=== PATIENT | female | born 1945 | race Caucasian/White ===

== ENCOUNTER 2016-11-16 05:24 | Inpatient (IN) | payer OTHER ==
[~2016-11-16] VITALS: Ht 147.3 cm; Wt 92.3 kg
[2016-11-16] MEDS ORDERED: IPRATRPIUM/ALBUTEROL 0.5/2.5MG 3 ML NEBU. ONE (05:57)
[2016-11-16] MEDS ORDERED: VANCOMYCIN PER PHARMACY MC PRN (06:30)
[2016-11-16] MEDS ORDERED: IPRATRPIUM/ALBUTEROL 0.5/2.5MG 3 ML NEBU. NEB ONE (06:30)
[2016-11-16] MEDS ORDERED: PIP/TAZO PER PHARMACY MC PRN (06:30)
[2016-11-16 06:35] LABS: BASO # 0.1 x10^3/uL (0.0-0.2); BASO % 1 % (0-3); EOS % 2 % (0-3); HEMATOCRIT 38.2 % (36.0-47.0); HEMOGLOBIN 12.1 g/dL (12.0-15.5); LYMPH # 1.4 x10^3/uL (1.0-4.8); LYMPH % 8 % (24-48); MEAN CORPUSCULAR HEMOGLOBIN 28 pg (25-35); MEAN CORPUSCULAR HGB CONC 32 g/dL (31-37); MEAN CORPUSCULAR VOLUME 87 fL (79-100); MONO % 7 % (0-9); NEUT % 82 % (31-73); PLATELET COUNT 327 x10^3/uL (140-400); RED BLOOD COUNT 4.38 x10^6/uL (3.50-5.40); RED CELL DISTRIBUTION WIDTH 16.7 % (11.5-14.5); WHITE BLOOD COUNT 16.9 x10^3/uL (4.0-11.0)
[2016-11-16 06:37] LABS: BILIRUBIN,URINE NEGATIVE (NEG); GLUCOSE,URINE NEGATIVE (NEG); NITRITE,URINE NEGATIVE (NEG); PROTEIN,URINE NEGATIVE (NEG-TRACE); UROBILINOGEN,URINE 0.2 mg/dL (0.2 mg/dL)
[2016-11-16] MEDS: IV NORMAL SALINE 1000ML BAG 1,000 ML IV SCH ×3 (06:43→09:30)
--- NOTE | 2016-11-16 06:46 | PHYS DOC ---
Past Medical History Past Medical History: Anxiety, Arthritis, COPD, Depression, Diabetes-Type I, Fibromyalgia, High Cholesterol, Hypertension, Other Additional Past Medical Histor: NEUROPATHY, HYPOKALEMIA, ALLERGIC RHINITIS Past Surgical History: , Knee Replacement Alcohol Use: None Drug Use: None Adult General Chief Complaint Chief Complaint: MECHANICAL FALL HPI HPI 71-year-old female presenting to the emergency department from an assisted living facility after sustaining a mechanical fall when she reports that her knee gave out. She had knee surgery at the end of September and has been doing rehabilitation on her knee. She also has had a cough for the past 3 days. It is productive with a yellow green sputum. Here the patient has a fever. Onset 2-3 days. Location lungs. Duration intermittent. No alleviating or exacerbating factors. The patient denies any redness or warmth in her right knee. She denies having severe pain in her right knee and reports rehabilitation is going as expected after the knee surgery. Review of systems is negative for abdominal pain nausea vomiting. Positive for fever. Negative for rash. All other review of systems is negative unless otherwise noted in history of present illness. Pertinent physical exam findings: Lungs show mild wheezing bilaterally. tachy rate w/ reg rhythm. Abdomen is soft and nontender. The patient's right knee shows a clean dry and intact post surgical scar that is healing appropriately. The knee is similar in temperature to the contralateral knee. ED course: 71-year-old female presenting to the emergency department today with cough and fever. She was also hypoxic on initial triage vital signs. She is placed on oxygen given nebulizer. On inspection of the patient's surgical knee it does not appear to have clinical evidence suggestive of septic arthritis at this time. The patient does trigger our sepsis protocol. Lactic acid along with blood cultures IV antibiotics and fluid administration ordered. The patient was then admitted to our hospital for further evaluation workup and care. I did place an orthopedic consult to evaluate the patient's postsurgical knee. Review of Systems Review of Systems SEE ABOVE. Current Medications Current Medications Current Medications Medications (Trade) Dose Ordered Sig/James Start Time Stop Time Status Last Admin Dose Admin Albuterol/ Ipratropium (Duoneb) 3 ml 1X ONCE 11/16/16 06:30 11/16/16 06:31 DC 11/16/16 06:07 3 ML Piperacillin Sod/ Tazobactam Sod (Zosyn Per Pharmacy) 1 each PRN DAILY PRN 11/16/16 06:30 Vancomycin HCl (Vanco Per Pharmacy) 1 each PRN DAILY PRN 11/16/16 06:30 11/16/16 08:15 1 EACH Allergies Allergies Physical Exam Physical Exam Constitutional: Well developed, well nourished, no acute distress, non-toxic appearance. [] HENT: Normocephalic, atraumatic, bilateral external ears normal, oropharynx moist, no oral exudates, nose normal. [] Eyes: PERRLA, EOMI, conjunctiva normal, no discharge. [] Neck: Normal range of motion, no tenderness, supple, no stridor. [] Cardiovascular:Heart rate regular rhythm, no murmur [] Lungs & Thorax: see above Abdomen: Bowel sounds normal, soft, no tenderness, no masses, no pulsatile masses. [] Skin: Warm, dry, no erythema, no rash. [] Back: No tenderness, no CVA tenderness. [] Extremities: see above Neurologic: Alert and oriented X 3, normal motor function, normal sensory function, no focal deficits noted. [] Psychologic: Affect normal, judgement normal, mood normal. [] Current Patient Data Vital Signs Vital Signs Date Time Temp Pulse Resp B/P (MAP) Pulse Ox O2 Delivery O2 Flow Rate FiO2 11/16/16 06:25 110 129/68 (88) 94 Nasal Cannula 3.0 11/16/16 05:26 100.8 20 100.8 Lab Values Laboratory Tests Test 11/16/16 05:40 11/16/16 05:45 11/16/16 06:25 Lactic Acid Level 2.6 mmol/L (0.4-2.0) H Troponin I Quantitative < 0.017 ng/mL (0.000-0.055) White Blood Count 16.9 x10^3/uL (4.0-11.0) H Red Blood Count 4.38 x10^6/uL (3.50-5.40) Hemoglobin 12.1 g/dL (12.0-15.5) Hematocrit 38.2 % (36.0-47.0) Mean Corpuscular Volume 87 fL (79-100) Mean Corpuscular Hemoglobin 28 pg (25-35) Mean Corpuscular Hemoglobin Concent 32 g/dL (31-37) Red Cell Distribution Width 16.7 % (11.5-14.5) H Platelet Count 327 x10^3/uL (140-400) Neutrophils (%) (Auto) 82 % (31-73) H Lymphocytes (%) (Auto) 8 % (24-48) L Monocytes (%) (Auto) 7 % (0-9) Eosinophils (%) (Auto) 2 % (0-3) Basophils (%) (Auto) 1 % (0-3) Neutrophils # (Auto) 13.9 x10^3uL (1.8-7.7) H Lymphocytes # (Auto) 1.4 x10^3/uL (1.0-4.8) Monocytes # (Auto) 1.2 x10^3/uL (0.0-1.1) H Eosinophils # (Auto) 0.3 x10^3/uL (0.0-0.7) Basophils # (Auto) 0.1 x10^3/uL (0.0-0.2) Sodium Level 143 mmol/L (136-145) Potassium Level 4.2 mmol/L (3.5-5.1) Chloride Level 106 mmol/L (98-107) Carbon Dioxide Level 26 mmol/L (21-32) Anion Gap 11 (6-14) Blood Urea Nitrogen 20 mg/dL (7-20) Creatinine 1.0 mg/dL (0.6-1.0) Estimated GFR (Cockcroft-Gault) 54.7 BUN/Creatinine Ratio 20 (6-20) Glucose Level 123 mg/dL (70-99) H Calcium Level 9.2 mg/dL (8.5-10.1) Total Bilirubin 0.3 mg/dL (0.2-1.0) Aspartate Amino Transferase (AST) 21 U/L (15-37) Alanine Aminotransferase (ALT) 13 U/L (14-59) L Alkaline Phosphatase 122 U/L (46-116) H Total Protein 6.6 g/dL (6.4-8.2) Albumin 3.5 g/dL (3.4-5.0) Albumin/Globulin Ratio 1.1 (1.0-1.7) Urine Collection Type U cath Urine Color Yellow Urine Clarity Clear Urine pH 6.0 Urine Specific [place] 1.020 Urine Protein Negative mg/dL (NEG-TRACE) Urine Glucose (UA) Negative mg/dL (NEG) Urine Ketones (Stick) Negative mg/dL (NEG) Urine Blood Negative (NEG) Urine Nitrite Negative (NEG) Urine Bilirubin Negative (NEG) Urine Urobilinogen Dipstick 0.2 mg/dL (0.2 mg/dL) Urine Leukocyte Esterase Small (NEG) Urine RBC 0 /HPF (0-2) Urine WBC 1-4 /HPF (0-4) Urine Transitional Epithelial Cells Mod /LPF Urine Amorphous Sediment Present /HPF Urine Bacteria Few /HPF (0-FEW) Urine Mucus Slight /LPF Laboratory Tests 11/16/16 05:45 Laboratory Tests 11/16/16 05:45 EKG EKG [] Radiology/Procedures Radiology/Procedures [] Course & Med Decision Making Course & Med Decision Making Pertinent Labs and Imaging studies reviewed. (See chart for details) [] Dragon Disclaimer Dragon Disclaimer This electronic medical record was generated, in whole or in part, using a voice recognition dictation system. Departure Departure Impression: Primary Impression: Pneumonia Disposition: ADMITTED INPATIENT Admitting Physician: Guilherme Palencia Condition: IMPROVED Referrals: BA SERRANO (PCP) TAMELA JOHNSTON MD Nov 16, 2016 06:46
[2016-11-16 06:53] LABS: BACTERIA,URINE FEW /HPF (0-FEW); RBC,URINE 0 /HPF (0-2)
[2016-11-16 06:53] LABS: CALCIUM 9.2 mg/dL (8.5-10.1); GFR 54.7; POTASSIUM 4.2 mmol/L (3.5-5.1)
[2016-11-16 06:59] LABS: ALBUMIN 3.5 g/dL (3.4-5.0); ALBUMIN/GLOBULIN RATIO 1.1 (1.0-1.7); TOTAL BILIRUBIN 0.3 mg/dL (0.2-1.0); TOTAL PROTEIN 6.6 g/dL (6.4-8.2)
[2016-11-16] MEDS ORDERED: PIPERACILLIN/TAZOBACTAM 3.375 GM in IV NORMAL SALINE 50ML 50 ML IV ONE (07:00)
[2016-11-16] MEDS ORDERED: VANCOMYCIN 2 GM in IV NORMAL SALINE 500ML BAG 500 ML IV ONE (07:00)
--- NOTE | 2016-11-16 07:20 | EKG ---
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
[2016-11-16] MEDS ORDERED: ONDANSETRON PF 4 MG/2 ML VIAL. IV PRN ×2 (07:30→10:15)
[2016-11-16] MEDS ORDERED: MORPHINE SULFATE 2 MG/ML DISP.SYRIN. IV PRN (07:30)
--- NOTE | 2016-11-16 07:33 | RAD ---
Indication fever. Assess for occult infection. PA and lateral views of the chest were obtained. No prior imaging of the chest is available. The heart and pulmonary vessels appear normal. The lungs are clear acute infiltrates. Significant pleural fluid is not seen. There is no pneumothorax. Right shoulder prosthesis is noted. IMPRESSION: No acute or focal process is seen in the chest
--- NOTE | 2016-11-16 07:42 | ACF ---
Admission Forms Criteria TELEMETRY CARE Telemetry Admission Guidelines (Place 'X' for any and all applicable criteria): Admission to telemetry [A] may be indicated for ANY ONE of the following(1)(2)(3 )(4)(5): [X]I. Cardiac disease, including ANY ONE of the following (9)(10)(11)(12)(13 ): [ ]a) Postacute WI [ ]b) Low-risk patients with ST-segment elevation WI who have undergone successful percutaneous coronary intervention [ ]c) Unstable angina [ ]d) Suspected WI (until it is ruled out) [ ]e) Post cardiac surgery (first 48 to 72 hours unless complications occur) [X]f) Acute arrhythmias (including significant tachycardia or bradycardia) [B] [ ]g) Firing of an implantable cardioverter defibrillator [C] [ ]h) Suspected pacemaker or implantable cardioverter defibrillator malfunction (10) [ ]i) New administration or adjustment of an antiarrhythmic drug [D ] [ ]j) Child admitted for acute congestive heart failure [ ]j) Long QT syndrome [ ]k) Advanced heart block (eg, second-degree Mobitz type II, third- degree heart block) [ ]l) Acute myocarditis or pericarditis [ ]m) Short-term (ambulatory or inpatient) monitoring after a cardiac procedure as indicated by ANY ONE of the following [E]: [ ]i) Electrophysiologic studies [ ]ii) Percutaneous coronary intervention with stent placement [ ]iii) Pacemaker placement with cardiac conduction defect [ ]iv) Implantable cardiac defibrillator placement [ ]II. Drug overdose or poisoning with substance that causes arrhythmias or QT prolongation (eg, phenothiazines, sympathomimetic agents, cyclic antidepressants, digitalis, antiarrhythmic drugs)(15) [ ]III. Short-term (ambulatory or inpatient) monitoring after therapeutic or diagnostic procedure requiring conscious sedation or anesthesia (eg, endoscopy, elective cardioversion) [ ]IV. Acute cerebrovascular even[F](18) [ ]V. Massive blood transfusion (eg, at least 10 units of packed red blood cells in 24 hours) [ ]. Variceal bleeding after endoscopy, sclerotherapy, or IV vasopressin [ ]VII. Uncorrected electrolyte abnormalities associated with an increased risk of dangerous arrhythmia [G]; examples include [ ]a) Hyperkalemia with attributable ECG changes [ ]b) Potassium greater than 6.5 mmol/L (mEq/L) in a patient without history of chronic renal disease [ ]c) Prolonged QT attributed to hypokalemia, hypomagnesemia, or hypocalcemia [ ]VIII.Unexplained syncope or other neurologic event suspected of being due to arrhythmia due to a finding that increases risk; examples include(19)(20)(21): [ ]a) High-risk ECG findings (eg, bifascicular block, bradycardia, abnormal QT interval, ventricular pre- excitation) [ ]b) History of previous syncope due to arrhythmia [ ]c) Abnormal ventricular function (eg, reduced ejection fraction ) [ ]d) Exertional or supine syncope [ ]e) Concerning syncope characteristics (eg, sudden loss of consciousness without prodrome) [ ]f) Family history of sudden [ ]g) Use of arrhythmogenic medication [ ]h) Suspected cardiac ischemia [ ]i) Known channelopathy (eg, long QT syndrome, Brugada syndrome, or catecholaminergic paroxysmal ventricular tachycardia) [ ]j) Known structural heart disease (eg, hypertrophic cardiomyopathy , severe valvular disease) [ ]k) Palpitations preceding syncope The original [employer] content created by [employer] has been revised. The portions of the content which have been revised are identified through the use of italic text or in bold, and [employer] has neither reviewed nor approved the modified material. All other unmodified content is copyright [employer]. Please see references footnoted in the original [employer] edition 2016 Admission Criteria Met?: Yes NASEEM AYALA Nov 16, 2016 07:42
--- NOTE | 2016-11-16 07:44 | RAD ---
Indication fall, pain. An AP view of the pelvis was obtained as well as targeted AP views of both hips. There are some degenerative changes involving both hips. No fracture or acute bony finding is seen. Postoperative changes in the lower lumbar spine are noted. IMPRESSION: No acute bony finding seen
[2016-11-16 08:18] VITALS: BP 152/83
[2016-11-16 09:33] VITALS: BP 140/85
[2016-11-16] MEDS ORDERED: hydrALAZINE 20 MG/ML VIAL. IVP PRN (10:15)
[2016-11-16 10:30] VITALS: BP 185/93
[2016-11-16] MEDS ORDERED: hydrALAZINE 20 MG/ML VIAL. IVP ONE (10:30)
[2016-11-16] MEDS: HYDROcodone/APAP 5/325MG 1 TAB TABLET PO PRN ×2 (10:39→20:58)
[2016-11-16] MEDS: ALBUTEROL SULFATE 2.5 MG/3 ML NEBU. NEB PRN (11:39)
--- NOTE | 2016-11-16 12:18 | PDOC1 ---
History and Physical Current Problem List Problem List Problems Medical Problems: (1) Pneumonia Status: Acute Current Medications Current Medications Current Medications Medications (Trade) Dose Ordered Sig/James Start Time Stop Time Status Last Admin Dose Admin Acetaminophen (Tylenol) 325 mg PRN Q6HRS PRN 11/16/16 10:15 Acetaminophen/ Hydrocodone Bitart (Lortab 5/325) 1 tab PRN Q6HRS PRN 11/16/16 10:15 11/16/16 10:39 1 TAB Albuterol Sulfate (Ventolin Neb Soln) 2.5 mg PRN Q4HRS PRN 11/16/16 10:15 11/16/16 11:39 2.5 MG Albuterol/ Ipratropium (Duoneb) 3 ml 1X ONCE 11/16/16 06:30 11/16/16 06:31 DC 11/16/16 06:07 3 ML Hydralazine HCl (Apresoline) 10 mg 1X ONCE 11/16/16 10:30 11/16/16 10:31 DC 11/16/16 10:35 10 MG Morphine Sulfate 2 mg PRN Q2HR PRN 11/16/16 07:30 11/17/16 07:29 Ondansetron HCl (Zofran) 4 mg PRN Q8HRS PRN 11/16/16 10:15 Piperacillin Sod/ Tazobactam Sod (Zosyn Per Pharmacy) 1 each PRN DAILY PRN 11/16/16 06:30 Piperacillin Sod/ Tazobactam Sod 3.375 gm/Sodium Chloride 50 ml @ 100 mls/hr 1X ONCE 11/16/16 07:00 11/16/16 07:29 DC 11/16/16 06:43 100 MLS/HR Piperacillin Sod/ Tazobactam Sod 4.5 gm/Sodium Chloride 100 ml @ 200 mls/hr Q6HRS 11/16/16 12:00 Sodium Chloride 1,000 ml @ 1,250 mls/hr Q48M 11/16/16 07:00 11/16/16 09:01 DC 11/16/16 09:30 1,250 MLS/HR Vancomycin HCl 1 each 1X ONCE 11/18/16 07:00 11/18/16 07:01 Vancomycin HCl (Vanco Per Pharmacy) 1 each PRN DAILY PRN 11/16/16 06:30 11/16/16 08:15 1 EACH Vancomycin HCl 1.25 gm/Sodium Chloride 250 ml @ 167 mls/hr Q24H 11/17/16 07:30 Vancomycin HCl 2 gm/Sodium Chloride 500 ml @ 250 mls/hr 1X ONCE 11/16/16 07:00 11/16/16 08:59 DC 11/16/16 07:22 250 MLS/HR Allergies Allergies Allergies Coded Allergies Type Severity Reaction Last Updated Verified levofloxacin Adverse Reaction Mild Nausea 11/16/16 Yes ROS Review of System CONSTITUTIONAL: No fever or chills EYES: No recent changes SKIN: No rash or itching CARDIOVASCULAR: No chest pain, syncope, palpitations, or edema RESPIRATORY: SOB or cough GASTROINTESTINAL: No nausea, vomiting or abdominal pain NEUROLOGICAL: No headaches or weakness ENDOCRINE: No cold or heat intolerance GENITOURINARY: No urgency or frequency of urination MUSCULOSKELETAL: No back pain or joint pain LYMPHATICS: No enlarged lymph nodes PSYCHIATRIC: No anxiety or depression Physical Exam Physical Exam GEN.: apparent distress. Alert and oriented TIMES. 3 OBESE HEENT: Head is normocephalic, atraumatic NECK: Supple. no JVD LUNGS: DISTRESS, WHEEZING. HEART: RRR, S1, S2 present. Peripheral pulses intact ABDOMEN: Soft, nontender. Positive bowel sounds. EXTREMITIES: Without any cyanosis. NEUROLOGIC: Normal speech, normal tone PSYCHIATRIC: Normal affect, normal mood. SKIN: No ulcerations Vitals Vitals Vital Signs Date Time Temp Pulse Resp B/P (MAP) Pulse Ox O2 Delivery O2 Flow Rate FiO2 11/16/16 11:53 Nasal Cannula 2.0 11/16/16 11:42 97 11/16/16 10:35 114 185/93 11/16/16 10:30 98.2 18 98.2 Labs Labs Laboratory Tests Test 11/16/16 05:40 11/16/16 05:45 11/16/16 06:25 11/16/16 08:25 Lactic Acid Level 2.6 mmol/L (0.4-2.0) 1.3 mmol/L (0.4-2.0) Troponin I Quantitative < 0.017 ng/mL (0.000-0.055) White Blood Count 16.9 x10^3/uL (4.0-11.0) Red Blood Count 4.38 x10^6/uL (3.50-5.40) Hemoglobin 12.1 g/dL (12.0-15.5) Hematocrit 38.2 % (36.0-47.0) Mean Corpuscular Volume 87 fL (79-100) Mean Corpuscular Hemoglobin 28 pg (25-35) Mean Corpuscular Hemoglobin Concent 32 g/dL (31-37) Red Cell Distribution Width 16.7 % (11.5-14.5) Platelet Count 327 x10^3/uL (140-400) Neutrophils (%) (Auto) 82 % (31-73) Lymphocytes (%) (Auto) 8 % (24-48) Monocytes (%) (Auto) 7 % (0-9) Eosinophils (%) (Auto) 2 % (0-3) Basophils (%) (Auto) 1 % (0-3) Neutrophils # (Auto) 13.9 x10^3uL (1.8-7.7) Lymphocytes # (Auto) 1.4 x10^3/uL (1.0-4.8) Monocytes # (Auto) 1.2 x10^3/uL (0.0-1.1) Eosinophils # (Auto) 0.3 x10^3/uL (0.0-0.7) Basophils # (Auto) 0.1 x10^3/uL (0.0-0.2) Sodium Level 143 mmol/L (136-145) Potassium Level 4.2 mmol/L (3.5-5.1) Chloride Level 106 mmol/L (98-107) Carbon Dioxide Level 26 mmol/L (21-32) Anion Gap 11 (6-14) Blood Urea Nitrogen 20 mg/dL (7-20) Creatinine 1.0 mg/dL (0.6-1.0) Estimated GFR (Cockcroft-Gault) 54.7 BUN/Creatinine Ratio 20 (6-20) Glucose Level 123 mg/dL (70-99) Calcium Level 9.2 mg/dL (8.5-10.1) Total Bilirubin 0.3 mg/dL (0.2-1.0) Aspartate Amino Transf (AST/SGOT) 21 U/L (15-37) Alanine Aminotransferase (ALT/SGPT) 13 U/L (14-59) Alkaline Phosphatase 122 U/L (46-116) Total Protein 6.6 g/dL (6.4-8.2) Albumin 3.5 g/dL (3.4-5.0) Albumin/Globulin Ratio 1.1 (1.0-1.7) Urine Collection Type U cath Urine Color Yellow Urine Clarity Clear Urine pH 6.0 Urine Specific [place] 1.020 Urine Protein Negative mg/dL (NEG-TRACE) Urine Glucose (UA) Negative mg/dL (NEG) Urine Ketones (Stick) Negative mg/dL (NEG) Urine Blood Negative (NEG) Urine Nitrite Negative (NEG) Urine Bilirubin Negative (NEG) Urine Urobilinogen Dipstick 0.2 mg/dL (0.2 mg/dL) Urine Leukocyte Esterase Small (NEG) Urine RBC 0 /HPF (0-2) Urine WBC 1-4 /HPF (0-4) Urine Transitional Epithelial Cells Mod /LPF Urine Amorphous Sediment Present /HPF Urine Bacteria Few /HPF (0-FEW) Urine Mucus Slight /LPF Laboratory Tests Test 11/16/16 05:40 11/16/16 05:45 11/16/16 06:25 11/16/16 08:25 Lactic Acid Level 2.6 mmol/L (0.4-2.0) 1.3 mmol/L (0.4-2.0) Troponin I Quantitative < 0.017 ng/mL (0.000-0.055) White Blood Count 16.9 x10^3/uL (4.0-11.0) Red Blood Count 4.38 x10^6/uL (3.50-5.40) Hemoglobin 12.1 g/dL (12.0-15.5) Hematocrit 38.2 % (36.0-47.0) Mean Corpuscular Volume 87 fL (79-100) Mean Corpuscular Hemoglobin 28 pg (25-35) Mean Corpuscular Hemoglobin Concent 32 g/dL (31-37) Red Cell Distribution Width 16.7 % (11.5-14.5) Platelet Count 327 x10^3/uL (140-400) Neutrophils (%) (Auto) 82 % (31-73) Lymphocytes (%) (Auto) 8 % (24-48) Monocytes (%) (Auto) 7 % (0-9) Eosinophils (%) (Auto) 2 % (0-3) Basophils (%) (Auto) 1 % (0-3) Neutrophils # (Auto) 13.9 x10^3uL (1.8-7.7) Lymphocytes # (Auto) 1.4 x10^3/uL (1.0-4.8) Monocytes # (Auto) 1.2 x10^3/uL (0.0-1.1) Eosinophils # (Auto) 0.3 x10^3/uL (0.0-0.7) Basophils # (Auto) 0.1 x10^3/uL (0.0-0.2) Sodium Level 143 mmol/L (136-145) Potassium Level 4.2 mmol/L (3.5-5.1) Chloride Level 106 mmol/L (98-107) Carbon Dioxide Level 26 mmol/L (21-32) Anion Gap 11 (6-14) Blood Urea Nitrogen 20 mg/dL (7-20) Creatinine 1.0 mg/dL (0.6-1.0) Estimated GFR (Cockcroft-Gault) 54.7 BUN/Creatinine Ratio 20 (6-20) Glucose Level 123 mg/dL (70-99) Calcium Level 9.2 mg/dL (8.5-10.1) Total Bilirubin 0.3 mg/dL (0.2-1.0) Aspartate Amino Transf (AST/SGOT) 21 U/L (15-37) Alanine Aminotransferase (ALT/SGPT) 13 U/L (14-59) Alkaline Phosphatase 122 U/L (46-116) Total Protein 6.6 g/dL (6.4-8.2) Albumin 3.5 g/dL (3.4-5.0) Albumin/Globulin Ratio 1.1 (1.0-1.7) Urine Collection Type U cath Urine Color Yellow Urine Clarity Clear Urine pH 6.0 Urine Specific [place] 1.020 Urine Protein Negative mg/dL (NEG-TRACE) Urine Glucose (UA) Negative mg/dL (NEG) Urine Ketones (Stick) Negative mg/dL (NEG) Urine Blood Negative (NEG) Urine Nitrite Negative (NEG) Urine Bilirubin Negative (NEG) Urine Urobilinogen Dipstick 0.2 mg/dL (0.2 mg/dL) Urine Leukocyte Esterase Small (NEG) Urine RBC 0 /HPF (0-2) Urine WBC 1-4 /HPF (0-4) Urine Transitional Epithelial Cells Mod /LPF Urine Amorphous Sediment Present /HPF Urine Bacteria Few /HPF (0-FEW) Urine Mucus Slight /LPF VTE Prophylaxis Ordered VTE Prophylaxis Devices: Yes VTE Pharmacological Prophylaxi: Yes BOSTON CORTES MD Nov 16, 2016 12:18
[2016-11-16] MEDS ORDERED: DEXTROSE 50% 25 GM / 50ML DISP.SYRIN. IV PRN (12:30)
[2016-11-16] MEDS: ENOXAPARIN 40 MG/0.4 ML SYRINGE. SQ SCH ×3 (13:00→20:58)
[2016-11-16 14:30] VITALS: BP 131/77
--- NOTE | 2016-11-16 14:38 | HP ---
ADMIT DATE: 11/16/2016 CHIEF COMPLAINT: Shortness of breath, mechanical fall. HISTORY OF PRESENT ILLNESS: A 71-year-old female patient with several comorbid conditions, who lives at assisted living facility. She was brought to the hospital for after sustaining a mechanical fall. As per the patient, she says her knee gave out. She had surgery to left knee and after that she was admitted to rehab for rehabilitation and then she went back to the assisted living facility. For last couple of days, she is having some yellowish greenish sputum with shortness of breath with some distress. She denies any active fever, chills, nausea or vomiting. She was admitted to [facility] for nearly few months ago. At that time, she was diagnosed with Legionella pneumonia. She is actively smoking, but she says cutting down with history of COPD. PAST MEDICAL HISTORY: Anxiety, arthritis, COPD, depression, type 1 diabetes, hyperlipidemia, hypertension, neuropathy, hyperkalemia and allergic rhinitis. PAST SURGICAL HISTORY: and knee replacement. PERSONAL HISTORY: Smoking, positive alcohol occasional and no substance abuse. ALLERGIES: LEVOFLOXACIN. FAMILY HISTORY: None known to patient possible hypertension. REVIEW OF SYSTEMS AND PHYSICAL EXAMINATION: Please see my electronic H and P. LABORATORY DATA: WBC 16.9, hemoglobin 12.1, MCV is 28 and platelets 327. Chemistry: Sodium is ____, potassium 4.2, chloride is 106, gap is 11, creatinine is 1.0. Lactic acid 2.6. AST is 21, ALT is 13. Urine: Nitrites negative, leukocyte esterase negative. IMAGING STUDIES: Chest x-ray: No acute focal process seen. Hip and no acute bony abnormalities seen. ASSESSMENT: 1. Acute respiratory distress present on admission possible chronic obstructive pulmonary disease exacerbation and also possible exacerbation and questionable pneumonia. 2. Chronic obstructive pulmonary disease. 3. Diabetes mellitus history. 4. Fibromyalgia. 5. Debility. 6. Anxiety. PLAN: 1. She has been admitted to the hospital for tele for currently she is on broad-spectrum antibiotics, Zosyn and vancomycin and we will get sputum cultures. 2. Consult Pulmonology for further recommendations. I will start her on a COPD exacerbation protocol such as IV Solu-Medrol and pediatric nebulizations. 3. Continue supplemental oxygen to keep saturations around 90%. 4. Physical therapy and occupation therapy. CBC, BMP in a.m., sliding scale insulin. 5. Urination legionella has been ordered. 6. The patient is actively wheezing at the time of my examination and will try DuoNeb x 1 now. Discussed with RN. 7. De-escalation of her antibiotics based on the patient's clinical response. 8. Home medications reviewed and reconciled. I will hold Lasix at this time. 9. Physical therapy and occupational therapy. BOSTON CORTES MD DR: JENELLE/norah JOB#: [id number] / [id number] LORRAINE
[2016-11-16] MEDS: methylPREDNISolone SOD SUCC PF 40 MG/ML VIAL. IV SCH ×2 (14:40→20:56)
[2016-11-16] MEDS: ACETAMINOPHEN 325 MG TABLET. PO PRN (14:40)
[2016-11-16] MEDS: PIPERACILLIN/TAZOBACTAM 4.5 GM in IV NORMAL SALINE 100ML 100 ML IV SCH ×2 (14:41→19:06)
--- NOTE | 2016-11-16 15:03 | PDOC ---
PULMONARY PROGRESS NOTES Vitals Vital Signs Date Time Temp Pulse Resp B/P (MAP) Pulse Ox O2 Delivery O2 Flow Rate FiO2 11/16/16 11:55 Nasal Cannula 2.0 11/16/16 11:42 97 11/16/16 10:35 114 185/93 11/16/16 10:30 98.2 18 98.2 Labs Laboratory Tests Test 11/16/16 05:40 11/16/16 05:45 11/16/16 06:25 11/16/16 08:25 Lactic Acid Level 2.6 mmol/L (0.4-2.0) 1.3 mmol/L (0.4-2.0) Troponin I Quantitative < 0.017 ng/mL (0.000-0.055) White Blood Count 16.9 x10^3/uL (4.0-11.0) Red Blood Count 4.38 x10^6/uL (3.50-5.40) Hemoglobin 12.1 g/dL (12.0-15.5) Hematocrit 38.2 % (36.0-47.0) Mean Corpuscular Volume 87 fL (79-100) Mean Corpuscular Hemoglobin 28 pg (25-35) Mean Corpuscular Hemoglobin Concent 32 g/dL (31-37) Red Cell Distribution Width 16.7 % (11.5-14.5) Platelet Count 327 x10^3/uL (140-400) Neutrophils (%) (Auto) 82 % (31-73) Lymphocytes (%) (Auto) 8 % (24-48) Monocytes (%) (Auto) 7 % (0-9) Eosinophils (%) (Auto) 2 % (0-3) Basophils (%) (Auto) 1 % (0-3) Neutrophils # (Auto) 13.9 x10^3uL (1.8-7.7) Lymphocytes # (Auto) 1.4 x10^3/uL (1.0-4.8) Monocytes # (Auto) 1.2 x10^3/uL (0.0-1.1) Eosinophils # (Auto) 0.3 x10^3/uL (0.0-0.7) Basophils # (Auto) 0.1 x10^3/uL (0.0-0.2) Sodium Level 143 mmol/L (136-145) Potassium Level 4.2 mmol/L (3.5-5.1) Chloride Level 106 mmol/L (98-107) Carbon Dioxide Level 26 mmol/L (21-32) Anion Gap 11 (6-14) Blood Urea Nitrogen 20 mg/dL (7-20) Creatinine 1.0 mg/dL (0.6-1.0) Estimated GFR (Cockcroft-Gault) 54.7 BUN/Creatinine Ratio 20 (6-20) Glucose Level 123 mg/dL (70-99) Calcium Level 9.2 mg/dL (8.5-10.1) Total Bilirubin 0.3 mg/dL (0.2-1.0) Aspartate Amino Transf (AST/SGOT) 21 U/L (15-37) Alanine Aminotransferase (ALT/SGPT) 13 U/L (14-59) Alkaline Phosphatase 122 U/L (46-116) Total Protein 6.6 g/dL (6.4-8.2) Albumin 3.5 g/dL (3.4-5.0) Albumin/Globulin Ratio 1.1 (1.0-1.7) Urine Collection Type U cath Urine Color Yellow Urine Clarity Clear Urine pH 6.0 Urine Specific [place] 1.020 Urine Protein Negative mg/dL (NEG-TRACE) Urine Glucose (UA) Negative mg/dL (NEG) Urine Ketones (Stick) Negative mg/dL (NEG) Urine Blood Negative (NEG) Urine Nitrite Negative (NEG) Urine Bilirubin Negative (NEG) Urine Urobilinogen Dipstick 0.2 mg/dL (0.2 mg/dL) Urine Leukocyte Esterase Small (NEG) Urine RBC 0 /HPF (0-2) Urine WBC 1-4 /HPF (0-4) Urine Transitional Epithelial Cells Mod /LPF Urine Amorphous Sediment Present /HPF Urine Bacteria Few /HPF (0-FEW) Urine Mucus Slight /LPF Laboratory Tests Test 11/16/16 05:40 11/16/16 05:45 11/16/16 06:25 11/16/16 08:25 Lactic Acid Level 2.6 mmol/L (0.4-2.0) 1.3 mmol/L (0.4-2.0) Troponin I Quantitative < 0.017 ng/mL (0.000-0.055) White Blood Count 16.9 x10^3/uL (4.0-11.0) Red Blood Count 4.38 x10^6/uL (3.50-5.40) Hemoglobin 12.1 g/dL (12.0-15.5) Hematocrit 38.2 % (36.0-47.0) Mean Corpuscular Volume 87 fL (79-100) Mean Corpuscular Hemoglobin 28 pg (25-35) Mean Corpuscular Hemoglobin Concent 32 g/dL (31-37) Red Cell Distribution Width 16.7 % (11.5-14.5) Platelet Count 327 x10^3/uL (140-400) Neutrophils (%) (Auto) 82 % (31-73) Lymphocytes (%) (Auto) 8 % (24-48) Monocytes (%) (Auto) 7 % (0-9) Eosinophils (%) (Auto) 2 % (0-3) Basophils (%) (Auto) 1 % (0-3) Neutrophils # (Auto) 13.9 x10^3uL (1.8-7.7) Lymphocytes # (Auto) 1.4 x10^3/uL (1.0-4.8) Monocytes # (Auto) 1.2 x10^3/uL (0.0-1.1) Eosinophils # (Auto) 0.3 x10^3/uL (0.0-0.7) Basophils # (Auto) 0.1 x10^3/uL (0.0-0.2) Sodium Level 143 mmol/L (136-145) Potassium Level 4.2 mmol/L (3.5-5.1) Chloride Level 106 mmol/L (98-107) Carbon Dioxide Level 26 mmol/L (21-32) Anion Gap 11 (6-14) Blood Urea Nitrogen 20 mg/dL (7-20) Creatinine 1.0 mg/dL (0.6-1.0) Estimated GFR (Cockcroft-Gault) 54.7 BUN/Creatinine Ratio 20 (6-20) Glucose Level 123 mg/dL (70-99) Calcium Level 9.2 mg/dL (8.5-10.1) Total Bilirubin 0.3 mg/dL (0.2-1.0) Aspartate Amino Transf (AST/SGOT) 21 U/L (15-37) Alanine Aminotransferase (ALT/SGPT) 13 U/L (14-59) Alkaline Phosphatase 122 U/L (46-116) Total Protein 6.6 g/dL (6.4-8.2) Albumin 3.5 g/dL (3.4-5.0) Albumin/Globulin Ratio 1.1 (1.0-1.7) Urine Collection Type U cath Urine Color Yellow Urine Clarity Clear Urine pH 6.0 Urine Specific [place] 1.020 Urine Protein Negative mg/dL (NEG-TRACE) Urine Glucose (UA) Negative mg/dL (NEG) Urine Ketones (Stick) Negative mg/dL (NEG) Urine Blood Negative (NEG) Urine Nitrite Negative (NEG) Urine Bilirubin Negative (NEG) Urine Urobilinogen Dipstick 0.2 mg/dL (0.2 mg/dL) Urine Leukocyte Esterase Small (NEG) Urine RBC 0 /HPF (0-2) Urine WBC 1-4 /HPF (0-4) Urine Transitional Epithelial Cells Mod /LPF Urine Amorphous Sediment Present /HPF Urine Bacteria Few /HPF (0-FEW) Urine Mucus Slight /LPF Impression . full note dictated fever doubt pulmonary source will deescalate antibx check venous dopplers NAEEM TROY MD Nov 16, 2016 15:03
--- NOTE | 2016-11-16 15:15 | PDOC2 ---
CONSULT Date of Consult Date of Consult DATE: 11/16/16 TIME: 15:12 Identification/Chief Complaint Chief Complaint Recent total knee arthroplasty. Admitted with fever. Source Source: Chart review, Patient History of Present Illness Reason for Visit: This 71-year-old woman had total knee arthroplasty by Dr. Serra? at [facility] on 10/18/16. She was admitted to the hospital with fever. Her knee seems to be doing fine. I was asked to evaluate to make sure that her knee is normal postoperative. Current Problem List Problem List Problems Medical Problems: (1) Pneumonia Status: Acute Current Medications Current Medications Current Medications Albuterol/ Ipratropium (Duoneb) 3 ml STK-MED ONCE .ROUTE ; Start 11/16/16 at 05: 57; Stop 11/16/16 at 05:58; Status DC Albuterol/ Ipratropium (Duoneb) 3 ml 1X ONCE NEB Last administered on 06:07; Start 11/16/16 at 06:30; Stop 11/16/16 at 06:31; Status DC Sodium Chloride 1,000 ml @ 1,250 mls/hr Q48M IV Last administered on 09:30; Start 11/16/16 at 07:00; Stop 11/16/16 at 09:01; Status DC Vancomycin HCl (Vanco Per Pharmacy) 1 each PRN DAILY PRN MC SEE COMMENTS Last administered on 11/16/16 08:15; Start 11/16/16 at 06:30; Stop 11/16/16 at 15:00 ; Status DC Piperacillin Sod/ Tazobactam Sod (Zosyn Per Pharmacy) 1 each PRN DAILY PRN MC SEE COMMENTS; Start 11/16/16 at 06:30 Piperacillin Sod/ Tazobactam Sod 3.375 gm/Sodium Chloride 50 ml @ 100 mls/hr 1X ONCE IV Last administered on 11/16/16 06:43; Start 11/16/16 at 07:00; Stop 11/16/16 at 07:29; Status DC Vancomycin HCl 2 gm/Sodium Chloride 500 ml @ 250 mls/hr 1X ONCE IV Last administered on 11/16/16 07:22; Start 11/16/16 at 07:00; Stop 11/16/16 at 08:59 ; Status DC Ondansetron HCl (Zofran) 4 mg PRN Q8HRS PRN IV NAUSEA/VOMITING; Start 11/16/16 at 07:30; Stop 11/17/16 at 07:29 Morphine Sulfate 2 mg PRN Q2HR PRN IV PAIN; Start 11/16/16 at 07:30; Stop 11/17 at 07:29 Vancomycin HCl 1.25 gm/Sodium Chloride 250 ml @ 167 mls/hr Q24H IV ; Start at 07:30; Stop 11/17/16 at 07:30; Status DC Vancomycin HCl 1 each 1X ONCE MC ; Start 11/18/16 at 07:00; Stop 11/18/16 at 07 :00; Status DC Piperacillin Sod/ Tazobactam Sod 4.5 gm/Sodium Chloride 100 ml @ 200 mls/hr Q6HRS IV Last administered on 11/16/16 14:41; Start 11/16/16 at 12:00 Acetaminophen (Tylenol) 325 mg PRN Q6HRS PRN PO MILD PAIN / TEMP Last administered on 11/16/16 14:40; Start 11/16/16 at 10:15 Acetaminophen/ Hydrocodone Bitart (Lortab 5/325) 1 tab PRN Q6HRS PRN PO MODERATE TO SEVERE PAIN Last administered on 11/16/16 10:39; Start 11/16/16 at 10:15 Hydralazine HCl (Apresoline) 10 mg PRN Q4HRS PRN IVP ELEVATED BP, SEE COMMENTS ; Start 11/16/16 at 10:15 Ondansetron HCl (Zofran) 4 mg PRN Q8HRS PRN IV NAUSEA/VOMITING; Start 11/16/16 at 10:15 Albuterol Sulfate (Ventolin Neb Soln) 2.5 mg PRN Q4HRS PRN NEB SHORTNESS OF BREATH Last administered on 11/16/16 11:39; Start 11/16/16 at 10:15 Hydralazine HCl (Apresoline) 10 mg 1X ONCE IVP Last administered on 11/16/16 10:35; Start 11/16/16 at 10:30; Stop 11/16/16 at 10:31; Status DC Methylprednisolone Sodium Succinate (SOLU-Medrol 40MG VIAL) 40 mg Q8HRS IV Last administered on 11/16/16t 14:40; Start 11/16/16 at 14:00 Enoxaparin Sodium (Lovenox 40mg Syringe) 40 mg Q12HR SQ ; Start 11/16/16 at 13: 00 Insulin Aspart (NovoLOG) 0-7 UNITS TIDWMEALS SQ ; Start 11/16/16 at 17:00 Dextrose (Dextrose 50%-Water Syringe) 12.5 gm PRN Q15MIN PRN IV SEE COMMENTS; Start 11/16/16 at 12:30 Allergies Allergies: Coded Allergies: levofloxacin (Verified Adverse Reaction, Mild, Nausea, 11/16/16) Physical Exam General: Alert, Cooperative HEENT: Atraumatic MUSCULOSKELETAL: Other (the right knee shows a healing total knee incision, longitudinal, anterior, approximately 20 cm in length. There are tiny areas of eschar. There is no drainage. No erythema. Minimal diffuse tenderness consistent with recent postoperative status. Doubtful effusion. Range of motion 090 degrees. Normal alignment for total knee arthroplasty.) Vitals VITALS Vital Signs Date Time Temp Pulse Resp B/P (MAP) Pulse Ox O2 Delivery O2 Flow Rate FiO2 11/16/16 11:55 Nasal Cannula 2.0 11/16/16 11:42 97 11/16/16 10:35 114 185/93 11/16/16 10:30 98.2 18 98.2 Labs Labs Laboratory Tests Test 11/16/16 05:40 11/16/16 05:45 11/16/16 06:25 11/16/16 08:25 Lactic Acid Level 2.6 mmol/L (0.4-2.0) 1.3 mmol/L (0.4-2.0) Troponin I Quantitative < 0.017 ng/mL (0.000-0.055) White Blood Count 16.9 x10^3/uL (4.0-11.0) Red Blood Count 4.38 x10^6/uL (3.50-5.40) Hemoglobin 12.1 g/dL (12.0-15.5) Hematocrit 38.2 % (36.0-47.0) Mean Corpuscular Volume 87 fL (79-100) Mean Corpuscular Hemoglobin 28 pg (25-35) Mean Corpuscular Hemoglobin Concent 32 g/dL (31-37) Red Cell Distribution Width 16.7 % (11.5-14.5) Platelet Count 327 x10^3/uL (140-400) Neutrophils (%) (Auto) 82 % (31-73) Lymphocytes (%) (Auto) 8 % (24-48) Monocytes (%) (Auto) 7 % (0-9) Eosinophils (%) (Auto) 2 % (0-3) Basophils (%) (Auto) 1 % (0-3) Neutrophils # (Auto) 13.9 x10^3uL (1.8-7.7) Lymphocytes # (Auto) 1.4 x10^3/uL (1.0-4.8) Monocytes # (Auto) 1.2 x10^3/uL (0.0-1.1) Eosinophils # (Auto) 0.3 x10^3/uL (0.0-0.7) Basophils # (Auto) 0.1 x10^3/uL (0.0-0.2) Sodium Level 143 mmol/L (136-145) Potassium Level 4.2 mmol/L (3.5-5.1) Chloride Level 106 mmol/L (98-107) Carbon Dioxide Level 26 mmol/L (21-32) Anion Gap 11 (6-14) Blood Urea Nitrogen 20 mg/dL (7-20) Creatinine 1.0 mg/dL (0.6-1.0) Estimated GFR (Cockcroft-Gault) 54.7 BUN/Creatinine Ratio 20 (6-20) Glucose Level 123 mg/dL (70-99) Calcium Level 9.2 mg/dL (8.5-10.1) Total Bilirubin 0.3 mg/dL (0.2-1.0) Aspartate Amino Transf (AST/SGOT) 21 U/L (15-37) Alanine Aminotransferase (ALT/SGPT) 13 U/L (14-59) Alkaline Phosphatase 122 U/L (46-116) Total Protein 6.6 g/dL (6.4-8.2) Albumin 3.5 g/dL (3.4-5.0) Albumin/Globulin Ratio 1.1 (1.0-1.7) Urine Collection Type U cath Urine Color Yellow Urine Clarity Clear Urine pH 6.0 Urine Specific [place] 1.020 Urine Protein Negative mg/dL (NEG-TRACE) Urine Glucose (UA) Negative mg/dL (NEG) Urine Ketones (Stick) Negative mg/dL (NEG) Urine Blood Negative (NEG) Urine Nitrite Negative (NEG) Urine Bilirubin Negative (NEG) Urine Urobilinogen Dipstick 0.2 mg/dL (0.2 mg/dL) Urine Leukocyte Esterase Small (NEG) Urine RBC 0 /HPF (0-2) Urine WBC 1-4 /HPF (0-4) Urine Transitional Epithelial Cells Mod /LPF Urine Amorphous Sediment Present /HPF Urine Bacteria Few /HPF (0-FEW) Urine Mucus Slight /LPF Laboratory Tests Test 11/16/16 05:40 11/16/16 05:45 11/16/16 06:25 11/16/16 08:25 Lactic Acid Level 2.6 mmol/L (0.4-2.0) 1.3 mmol/L (0.4-2.0) Troponin I Quantitative < 0.017 ng/mL (0.000-0.055) White Blood Count 16.9 x10^3/uL (4.0-11.0) Red Blood Count 4.38 x10^6/uL (3.50-5.40) Hemoglobin 12.1 g/dL (12.0-15.5) Hematocrit 38.2 % (36.0-47.0) Mean Corpuscular Volume 87 fL (79-100) Mean Corpuscular Hemoglobin 28 pg (25-35) Mean Corpuscular Hemoglobin Concent 32 g/dL (31-37) Red Cell Distribution Width 16.7 % (11.5-14.5) Platelet Count 327 x10^3/uL (140-400) Neutrophils (%) (Auto) 82 % (31-73) Lymphocytes (%) (Auto) 8 % (24-48) Monocytes (%) (Auto) 7 % (0-9) Eosinophils (%) (Auto) 2 % (0-3) Basophils (%) (Auto) 1 % (0-3) Neutrophils # (Auto) 13.9 x10^3uL (1.8-7.7) Lymphocytes # (Auto) 1.4 x10^3/uL (1.0-4.8) Monocytes # (Auto) 1.2 x10^3/uL (0.0-1.1) Eosinophils # (Auto) 0.3 x10^3/uL (0.0-0.7) Basophils # (Auto) 0.1 x10^3/uL (0.0-0.2) Sodium Level 143 mmol/L (136-145) Potassium Level 4.2 mmol/L (3.5-5.1) Chloride Level 106 mmol/L (98-107) Carbon Dioxide Level 26 mmol/L (21-32) Anion Gap 11 (6-14) Blood Urea Nitrogen 20 mg/dL (7-20) Creatinine 1.0 mg/dL (0.6-1.0) Estimated GFR (Cockcroft-Gault) 54.7 BUN/Creatinine Ratio 20 (6-20) Glucose Level 123 mg/dL (70-99) Calcium Level 9.2 mg/dL (8.5-10.1) Total Bilirubin 0.3 mg/dL (0.2-1.0) Aspartate Amino Transf (AST/SGOT) 21 U/L (15-37) Alanine Aminotransferase (ALT/SGPT) 13 U/L (14-59) Alkaline Phosphatase 122 U/L (46-116) Total Protein 6.6 g/dL (6.4-8.2) Albumin 3.5 g/dL (3.4-5.0) Albumin/Globulin Ratio 1.1 (1.0-1.7) Urine Collection Type U cath Urine Color Yellow Urine Clarity Clear Urine pH 6.0 Urine Specific [place] 1.020 Urine Protein Negative mg/dL (NEG-TRACE) Urine Glucose (UA) Negative mg/dL (NEG) Urine Ketones (Stick) Negative mg/dL (NEG) Urine Blood Negative (NEG) Urine Nitrite Negative (NEG) Urine Bilirubin Negative (NEG) Urine Urobilinogen Dipstick 0.2 mg/dL (0.2 mg/dL) Urine Leukocyte Esterase Small (NEG) Urine RBC 0 /HPF (0-2) Urine WBC 1-4 /HPF (0-4) Urine Transitional Epithelial Cells Mod /LPF Urine Amorphous Sediment Present /HPF Urine Bacteria Few /HPF (0-FEW) Urine Mucus Slight /LPF Images Images No x-rays of the knee were taken. I don't believe any are needed. Assessment/Plan Assessment/Plan Recent right total knee arthroplasty. Everything clinically looks fine with the knee, with typical postoperative findings, and with no concerning findings. No evidence of infection of the total knee at this time. LASHON MERCEDES MD Nov 16, 2016 15:15
[2016-11-16] MEDS ORDERED: CLON0.5T3 PO (15:54)
[2016-11-16] MEDS ORDERED: CARV6.252 PO (15:54)
[2016-11-16] MEDS ORDERED: METF500T4 PO (15:54)
[2016-11-16] MEDS ORDERED: OXYC5CAP PO (15:54)
[2016-11-16] MEDS ORDERED: TRAM50TA PO (15:54)
[2016-11-16] MEDS ORDERED: METH-37 PO (15:54)
[2016-11-16] MEDS ORDERED: COLE1TAB2 PO (15:54)
[2016-11-16] MEDS ORDERED: DOCU100C28 PO (15:54)
[2016-11-16] MEDS ORDERED: DULO30CA43 PO (15:54)
[2016-11-16] MEDS ORDERED: MELA3TAB45 PO (15:54)
[2016-11-16] MEDS ORDERED: AMIT10TA PO (15:54)
[2016-11-16] MEDS ORDERED: ATOR20TA58 PO (15:54)
[2016-11-16] MEDS ORDERED: FURO40TA4 PO (15:54)
[2016-11-16] MEDS ORDERED: ASPI325T8 PO (15:54)
[2016-11-16] MEDS ORDERED: GABA-587 PO (15:54)
[2016-11-16] MEDS ORDERED: ALBU0.63 NEB (15:54)
[2016-11-16] MEDS ORDERED: POTA20TA82 PO (15:54)
[2016-11-16] MEDS ORDERED: LORA10TA3 PO (15:54)
[2016-11-16] MEDS ORDERED: DICL100G18 TP (15:54)
[2016-11-16] MEDS ORDERED: MIRT30TA3 PO (15:54)
[2016-11-16] MEDS ORDERED: traMADol 50 MG TABLET PO PRN (16:00)
[2016-11-16] MEDS ORDERED: DICLOFENAC SODIUM 1% TOPICAL GEL 100GM TUBE. TP PRN (16:00)
[2016-11-16] MEDS ORDERED: oxyCODONE IR 5 MG TABLET PO PRN (16:15)
--- NOTE | 2016-11-16 16:32 | RAD ---
CT head without contrast History: Fall, headache. Comparison: None. Procedure: Axial images are obtained of the head from the skull base through the vertex without IV contrast. Findings: Mild bilateral periventricular white matter hypodensities likely chronic small vessel ischemic disease. The ventricles and sulci are normal for the patient's age. No mass-effect, intracranial mass, midline shift, hemorrhage or obvious acute infarction is identified. Basilar cisterns are patent. Bone windows demonstrate no significant calvarial abnormality. The visualized paranasal sinuses appear clear. Impression: 1. No acute intracranial process. PQRS Compliance Statement: One or more of the following individualized dose reduction techniques were utilized for this examination: 1. Automated exposure control 2. Adjustment of the mA and/or kV according to patient size 3. Use of iterative reconstruction technique faint
--- NOTE | 2016-11-16 16:35 | RAD ---
Information: Ultrasound bilateral lower extremity venous duplex History: History of bilateral leg pain. Comparison: None available Technique: Grayscale, color Doppler 2-D, spectral waveform analysis of the bilateral lower extremity venous system was performed. Findings: The visualized common femoral vein, superficial femoral vein, popliteal vein demonstrate normal compression and augmentation of flow. The visualized calf veins are patent. Impression: 1. No evidence of deep venous thrombosis bilateral lower extremity venous system.
[2016-11-16] MEDS: INSULIN ASPART 300 UNITS/3 ML INSULN.PEN SQ SCH (17:00)
--- NOTE | 2016-11-16 17:04 | CARD ---
APPROVED REPORT EXAM: Two-dimensional and M-mode echocardiogram with Doppler and color Doppler. Other Information Quality : GoodHR: 109bpm Rhythm : Tachycardia INDICATION Tachycardia 2D DIMENSIONS RVDd2.2 (2.9-3.5cm)Left Atrium(2D)4.7 (1.6-4.0cm) IVSd0.8 (0.7-1.1cm)Aortic Root(2D)2.5 (2.0-3.7cm) LVDd4.8 (3.9-5.9cm)LVOT Diameter2.1 (1.8-2.4cm) PWd0.9 (0.7-1.1cm)LVDs2.8 (2.5-4.0cm) FS (%) 40.7 %SV75.6 ml LVEF(%)71.4 (>50%) Aortic Valve AoV Peak Aayush.146.5cm/sAoV VTI24.5cm AO Peak GR.8.6mmHgLVOT Peak Aayush.164.6cm/s AO Mean GR.5mmHgAVA (VMAX)3.94cm2 Mitral Valve MV E Krngjslw536.6cm/sMV E Peak Gr.8mmHg MV DECEL [id number] A Wgccpdyx345.8cm/s MV E Mean Gr.4mmHgE/A Ratio0.7 MV A [id number] Pulmonary Valve PV Peak Kuwyzhcs212.8cm/s LEFT VENTRICLE The left ventricle is normal size. There is normal left ventricular wall thickness. The left ventricu lar systolic function is normal. The Ejection Fraction is 70%. There is normal LV segmental wall hien on. Transmitral Doppler flow pattern is Grade I-abnormal relaxation pattern. RIGHT VENTRICLE The right ventricle is normal size. There is normal right ventricular wall thickness. The right ventr icular systolic function is normal. ATRIA The left atrium size is normal. The right atrium size is normal. The interatrial septum is intact wit h no evidence for an atrial septal defect or patent foramen ovale as noted on 2-D or Doppler imaging. AORTIC VALVE The aortic valve is mildly sclerotic. The aortic valve is trileaflet. Doppler and Color Flow revealed no significant aortic regurgitation. There is no significant aortic valvular stenosis. MITRAL VALVE The mitral valve leaflets are thickened. There is no evidence of mitral valve prolapse. There is no m itral valve stenosis. Doppler and Color Flow revealed no mitral valve regurgitation noted. TRICUSPID VALVE Doppler and Color Flow revealed no tricuspid valve regurgitation noted. Unable to determine pulmonary artery pressure at exam time. PULMONIC VALVE Doppler and Color Flow revealed no pulmonic valvular regurgitation. There is no pulmonic valvular sotero nosis. GREAT VESSELS The aortic root is normal in size. The pulmonary artery is normal. The IVC is normal in size and mario apses >50% with inspiration. PERICARDIAL EFFUSION There is no evidence of significant pericardial effusion. Critical Notification Critical Value: No <Conclusion> The left ventricular systolic function is normal. The Ejection Fraction is 70%. There is normal LV segmental wall motion. Transmitral Doppler flow pattern is Grade I-abnormal relaxation pattern. There is no evidence of significant pericardial effusion.
[2016-11-16] MEDS: CETIRIZINE HCL 10 MG TABLET. PO SCH (17:27)
[2016-11-16] MEDS: POTASSIUM CHLORIDE 20 MEQ TABLET.ER. PO SCH (17:27)
[2016-11-16] MEDS: GABAPENTIN 400 MG CAPSULE. PO SCH ×2 (17:28→20:57)
[2016-11-16] MEDS: METHOCARBAMOL 500 MG TABLET PO PRN ×2 (17:28→20:57)
[2016-11-16] MEDS: metFORMIN 500 MG TABLET PO SCH (17:28)
[2016-11-16] MEDS: CARVEDILOL 6.25 MG TABLET. PO SCH (17:29)
[2016-11-16 18:55] VITALS: BP 145/77
[2016-11-16] MEDS: MIRTAZAPINE 15 MG TABLET PO SCH (20:57)
[2016-11-16] MEDS: clonazePAM 0.5 MG TABLET PO SCH (20:57)
[2016-11-16] MEDS: ASPIRIN 325 MG TABLET PO SCH (20:57)
[2016-11-16] MEDS: ATORVASTATIN CALCIUM 20 MG TABLET PO SCH (20:57)
[2016-11-16] MEDS: DOCUSATE SODIUM 100 MG CAPSULE. PO SCH (20:58)
[2016-11-16] MEDS ORDERED: MELATONIN 12 MG PO SCH (21:00)
[2016-11-16] MEDS: AMITRIPTYLINE HCL 10 MG TABLET. PO SCH (21:01)
[2016-11-16 23:00] VITALS: BP 133/61
[2016-11-17] MEDS: PIPERACILLIN/TAZOBACTAM 4.5 GM in IV NORMAL SALINE 100ML 100 ML IV SCH ×3 (00:18→12:13)
[2016-11-17 04:55] LABS: BASO % 0 % (0-3); EOS % 0 % (0-3); HEMATOCRIT 31.9 % (36.0-47.0); HEMOGLOBIN 10.4 g/dL (12.0-15.5); LYMPH # 0.9 x10^3/uL (1.0-4.8); LYMPH % 9 % (24-48); MEAN CORPUSCULAR HEMOGLOBIN 28 pg (25-35); MEAN CORPUSCULAR HGB CONC 33 g/dL (31-37); MEAN CORPUSCULAR VOLUME 87 fL (79-100); MONO % 1 % (0-9); NEUT % 90 % (31-73); PLATELET COUNT 269 x10^3/uL (140-400); RED BLOOD COUNT 3.66 x10^6/uL (3.50-5.40); RED CELL DISTRIBUTION WIDTH 16.8 % (11.5-14.5); WHITE BLOOD COUNT 10.4 x10^3/uL (4.0-11.0)
[2016-11-17] MEDS: methylPREDNISolone SOD SUCC PF 40 MG/ML VIAL. IV SCH ×2 (05:10→14:54)
--- NOTE | 2016-11-17 05:10 | CONS ---
DATE OF CONSULTATION: 11/16/2016 ATTENDING PHYSICIAN: Dr. Palencia. REASON FOR CONSULTATION: The patient seen in pulmonary consultation at the request of Dr. Palencia for shortness of air. HISTORY OF PRESENT ILLNESS: The patient is a 71-year-old that recently had bilateral knee surgery, one in October and one in September, presented with a mechanical fall. She was also noted to be short of air and hypoxemic. She was admitted. I was asked to see her in consultation. The patient states that she had a cough productive of yellow-green sputum for the last several days. Denied fever. No chills, nausea. She states she was also admitted to [facility] a few months ago, was diagnosed with Legionella pneumonia. She currently smokes, ____ cut down. She has a history of COPD. She is not on home oxygen. PAST MEDICAL HISTORY: 1. COPD. 2. Recent pneumonia. 3. Depression. 4. Type 2 diabetes. 5. Hypertension. 6. Neuropathy. 7. Recent knee surgeries bilateral. PAST SURGICAL HISTORY: and knee replacement. SOCIAL HISTORY: She continues to smoke, occasional use of alcohol. ALLERGIES: LEVOFLOXACIN. FAMILY HISTORY: Positive for hypertension. REVIEW OF SYSTEMS: 10-point review was obtained and negative. CURRENT MEDICATIONS: List was reviewed. Please see the MRAD. HOME MEDICATIONS: List was reviewed. PHYSICAL EXAMINATION: GENERAL: The patient was in no respiratory distress. VITAL SIGNS: Stable. O2 saturation was greater than 92%. HEENT: Eyes, the sclerae were nonicteric. NECK: Jugular venous distention was not elevated. No lymphadenopathy. CHEST: Full expansion. LUNGS: Adequate airway flow, no wheezes. CARDIOVASCULAR: Regular rate and rhythm with S1, S2, no S3. ABDOMEN: Soft, nontender, nondistended. EXTREMITIES: No clubbing, cyanosis or pitting edema. NEUROLOGIC: The patient was awake, alert, following commands. A detailed neuro exam was not performed. LABORATORY DATA: Chest x-ray was reviewed, no acute infiltrate. White count was elevated at 16,000. Hemoglobin and hematocrit were noted. Electrolytes were noted. BUN and creatinine were normal. IMPRESSION: 1. Acute respiratory failure secondary to acute exacerbation of chronic obstructive pulmonary disease. 2. Recent history of pneumonia. 3. No fever. 4. Status post bilateral knee replacement. 5. Leukocytosis. 6. Tobacco dependence. PLAN: 1. I agree with current medical management, would deescalate antibiotics due to the fact that the chest x-ray is clear. 2. Obtain bilateral venous Dopplers of the lower extremities. 3. A 6-minute walk prior to discharge. 4. The patient was counseled on the importance of discontinuing her tobacco use. 5. Continue DVT prophylaxis. Dr. Palencia, I do appreciate the privilege in sharing in the patient's care. NAEEM TROY MD DR: ABBEY/norah JOB#: [id number] / [id number]
[2016-11-17 05:37] LABS: CALCIUM 8.7 mg/dL (8.5-10.1); CREATININE 0.9 mg/dL (0.6-1.0); GFR 61.7
[2016-11-17 07:00] VITALS: BP 147/72
[2016-11-17] MEDS ORDERED: VANCOMYCIN 1.25 GM in IV NORMAL SALINE 250ML 250 ML IV SCH (07:30)
[2016-11-17 07:43] LABS: ANISOCYTOSIS SLIGHT; PLT ESTIMATE ADEQUATE (ADEQUATE)
[2016-11-17] MEDS: INSULIN ASPART 300 UNITS/3 ML INSULN.PEN SQ SCH ×3 (08:00→17:00)
[2016-11-17] MEDS: ACETAMINOPHEN 325 MG TABLET. PO PRN (08:42)
[2016-11-17] MEDS: ASPIRIN 325 MG TABLET PO SCH ×2 (08:46→21:09)
[2016-11-17] MEDS: COLESTIPOL HCL 1 GM TABLET PO SCH (08:46)
[2016-11-17] MEDS: clonazePAM 0.5 MG TABLET PO SCH ×2 (08:47→21:09)
[2016-11-17] MEDS: CETIRIZINE HCL 10 MG TABLET. PO SCH (08:47)
[2016-11-17] MEDS: GABAPENTIN 400 MG CAPSULE. PO SCH ×3 (08:47→21:09)
[2016-11-17] MEDS: POTASSIUM CHLORIDE 20 MEQ TABLET.ER. PO SCH (08:47)
[2016-11-17] MEDS: metFORMIN 500 MG TABLET PO SCH ×2 (08:47→17:06)
[2016-11-17] MEDS: DULoxetine HCL 30 MG CAPSULE.DR PO SCH (08:47)
[2016-11-17] MEDS: CARVEDILOL 6.25 MG TABLET. PO SCH ×2 (08:48→17:06)
[2016-11-17] MEDS: ENOXAPARIN 40 MG/0.4 ML SYRINGE. SQ SCH ×2 (08:48→21:10)
[2016-11-17] MEDS: DOCUSATE SODIUM 100 MG CAPSULE. PO SCH ×2 (08:53→21:00)
--- NOTE | 2016-11-17 10:09 | PDOC ---
PULMONARY PROGRESS NOTES Subjective pt feels better less soa Vitals Vital Signs Date Time Temp Pulse Resp B/P (MAP) Pulse Ox O2 Delivery O2 Flow Rate FiO2 11/17/16 08:48 96 147/72 11/17/16 07:00 97.7 18 94 Nasal Cannula 2.0 97.7 ROS: No Nausea, No Chest Pain, No Abdominal Pain, No Increase Cough Lungs: Clear Cardiovascular: S1, S2 Abdomen: Soft Neuro Exam: Alert Extremities: No Edema Skin: Warm Labs Laboratory Tests Test 11/16/16 05:40 11/16/16 05:45 11/16/16 06:25 11/16/16 08:25 Lactic Acid Level 2.6 mmol/L (0.4-2.0) 1.3 mmol/L (0.4-2.0) Troponin I Quantitative < 0.017 ng/mL (0.000-0.055) White Blood Count 16.9 x10^3/uL (4.0-11.0) Red Blood Count 4.38 x10^6/uL (3.50-5.40) Hemoglobin 12.1 g/dL (12.0-15.5) Hematocrit 38.2 % (36.0-47.0) Mean Corpuscular Volume 87 fL (79-100) Mean Corpuscular Hemoglobin 28 pg (25-35) Mean Corpuscular Hemoglobin Concent 32 g/dL (31-37) Red Cell Distribution Width 16.7 % (11.5-14.5) Platelet Count 327 x10^3/uL (140-400) Neutrophils (%) (Auto) 82 % (31-73) Lymphocytes (%) (Auto) 8 % (24-48) Monocytes (%) (Auto) 7 % (0-9) Eosinophils (%) (Auto) 2 % (0-3) Basophils (%) (Auto) 1 % (0-3) Neutrophils # (Auto) 13.9 x10^3uL (1.8-7.7) Lymphocytes # (Auto) 1.4 x10^3/uL (1.0-4.8) Monocytes # (Auto) 1.2 x10^3/uL (0.0-1.1) Eosinophils # (Auto) 0.3 x10^3/uL (0.0-0.7) Basophils # (Auto) 0.1 x10^3/uL (0.0-0.2) Sodium Level 143 mmol/L (136-145) Potassium Level 4.2 mmol/L (3.5-5.1) Chloride Level 106 mmol/L (98-107) Carbon Dioxide Level 26 mmol/L (21-32) Anion Gap 11 (6-14) Blood Urea Nitrogen 20 mg/dL (7-20) Creatinine 1.0 mg/dL (0.6-1.0) Estimated GFR (Cockcroft-Gault) 54.7 BUN/Creatinine Ratio 20 (6-20) Glucose Level 123 mg/dL (70-99) Calcium Level 9.2 mg/dL (8.5-10.1) Total Bilirubin 0.3 mg/dL (0.2-1.0) Aspartate Amino Transf (AST/SGOT) 21 U/L (15-37) Alanine Aminotransferase (ALT/SGPT) 13 U/L (14-59) Alkaline Phosphatase 122 U/L (46-116) Total Protein 6.6 g/dL (6.4-8.2) Albumin 3.5 g/dL (3.4-5.0) Albumin/Globulin Ratio 1.1 (1.0-1.7) Urine Collection Type U cath Urine Color Yellow Urine Clarity Clear Urine pH 6.0 Urine Specific [place] 1.020 Urine Protein Negative mg/dL (NEG-TRACE) Urine Glucose (UA) Negative mg/dL (NEG) Urine Ketones (Stick) Negative mg/dL (NEG) Urine Blood Negative (NEG) Urine Nitrite Negative (NEG) Urine Bilirubin Negative (NEG) Urine Urobilinogen Dipstick 0.2 mg/dL (0.2 mg/dL) Urine Leukocyte Esterase Small (NEG) Urine RBC 0 /HPF (0-2) Urine WBC 1-4 /HPF (0-4) Urine Transitional Epithelial Cells Mod /LPF Urine Amorphous Sediment Present /HPF Urine Bacteria Few /HPF (0-FEW) Urine Mucus Slight /LPF Test 11/16/16 12:30 11/16/16 16:54 11/16/16 21:30 11/17/16 04:10 Urine Legionella Antigen Negative (Negative) Glucose (Fingerstick) 123 mg/dL (70-99) 128 mg/dL (70-99) White Blood Count 10.4 x10^3/uL (4.0-11.0) Red Blood Count 3.66 x10^6/uL (3.50-5.40) Hemoglobin 10.4 g/dL (12.0-15.5) Hematocrit 31.9 % (36.0-47.0) Mean Corpuscular Volume 87 fL (79-100) Mean Corpuscular Hemoglobin 28 pg (25-35) Mean Corpuscular Hemoglobin Concent 33 g/dL (31-37) Red Cell Distribution Width 16.8 % (11.5-14.5) Platelet Count 269 x10^3/uL (140-400) Neutrophils (%) (Auto) 90 % (31-73) Lymphocytes (%) (Auto) 9 % (24-48) Monocytes (%) (Auto) 1 % (0-9) Eosinophils (%) (Auto) 0 % (0-3) Basophils (%) (Auto) 0 % (0-3) Neutrophils # (Auto) 9.3 x10^3uL (1.8-7.7) Lymphocytes # (Auto) 0.9 x10^3/uL (1.0-4.8) Monocytes # (Auto) 0.1 x10^3/uL (0.0-1.1) Eosinophils # (Auto) 0.0 x10^3/uL (0.0-0.7) Basophils # (Auto) 0.0 x10^3/uL (0.0-0.2) Segmented Neutrophils % 88 % (35-66) Band Neutrophils % 5 % (0-9) Lymphocytes % 6 % (24-48) Monocytes % 1 % (0-10) Platelet Estimate Adequate (ADEQUATE) Anisocytosis Slight Sodium Level 143 mmol/L (136-145) Potassium Level 4.0 mmol/L (3.5-5.1) Chloride Level 109 mmol/L (98-107) Carbon Dioxide Level 23 mmol/L (21-32) Anion Gap 11 (6-14) Blood Urea Nitrogen 12 mg/dL (7-20) Creatinine 0.9 mg/dL (0.6-1.0) Estimated GFR (Cockcroft-Gault) 61.7 Glucose Level 126 mg/dL (70-99) Calcium Level 8.7 mg/dL (8.5-10.1) Test 11/17/16 08:34 Glucose (Fingerstick) 121 mg/dL (70-99) Laboratory Tests Test 11/16/16 12:30 11/16/16 16:54 11/16/16 21:30 11/17/16 04:10 Urine Legionella Antigen Negative (Negative) Glucose (Fingerstick) 123 mg/dL (70-99) 128 mg/dL (70-99) White Blood Count 10.4 x10^3/uL (4.0-11.0) Red Blood Count 3.66 x10^6/uL (3.50-5.40) Hemoglobin 10.4 g/dL (12.0-15.5) Hematocrit 31.9 % (36.0-47.0) Mean Corpuscular Volume 87 fL (79-100) Mean Corpuscular Hemoglobin 28 pg (25-35) Mean Corpuscular Hemoglobin Concent 33 g/dL (31-37) Red Cell Distribution Width 16.8 % (11.5-14.5) Platelet Count 269 x10^3/uL (140-400) Neutrophils (%) (Auto) 90 % (31-73) Lymphocytes (%) (Auto) 9 % (24-48) Monocytes (%) (Auto) 1 % (0-9) Eosinophils (%) (Auto) 0 % (0-3) Basophils (%) (Auto) 0 % (0-3) Neutrophils # (Auto) 9.3 x10^3uL (1.8-7.7) Lymphocytes # (Auto) 0.9 x10^3/uL (1.0-4.8) Monocytes # (Auto) 0.1 x10^3/uL (0.0-1.1) Eosinophils # (Auto) 0.0 x10^3/uL (0.0-0.7) Basophils # (Auto) 0.0 x10^3/uL (0.0-0.2) Segmented Neutrophils % 88 % (35-66) Band Neutrophils % 5 % (0-9) Lymphocytes % 6 % (24-48) Monocytes % 1 % (0-10) Platelet Estimate Adequate (ADEQUATE) Anisocytosis Slight Sodium Level 143 mmol/L (136-145) Potassium Level 4.0 mmol/L (3.5-5.1) Chloride Level 109 mmol/L (98-107) Carbon Dioxide Level 23 mmol/L (21-32) Anion Gap 11 (6-14) Blood Urea Nitrogen 12 mg/dL (7-20) Creatinine 0.9 mg/dL (0.6-1.0) Estimated GFR (Cockcroft-Gault) 61.7 Glucose Level 126 mg/dL (70-99) Calcium Level 8.7 mg/dL (8.5-10.1) Test 11/17/16 08:34 Glucose (Fingerstick) 121 mg/dL (70-99) Medications Active Scripts Medications Dose Route/Sig Max Daily Dose Days Date Category Tramadol Hcl 50 Mg Tablet 1 Tab PO PRN Q6HRS 11/16/16 Reported Oxycodone Hcl 5 Mg Capsule 5 Mg PO PRN Q4HRS PRN 11/16/16 Reported Robaxin (Methocarbamol) 500 Mg Tablet 1 Tab PO PRN TID PRN 11/16/16 Reported Mirtazapine 30 Mg Tablet 1 Tab PO QHS 11/16/16 Reported Melatin (Melatonin) 3 Mg Tablet 12 Mg PO QHS 11/16/16 Reported Atorvastatin Calcium 20 Mg Tablet 20 Mg PO HS 11/16/16 Reported Amitriptyline Hcl 10 Mg Tablet 1 Tab PO QHS 11/16/16 Reported Voltaren (Diclofenac Sodium) 100 Gm Gel..gram. 1 Gm TP PRN QID PRN 11/16/16 Reported Gabapentin 400 Mg Capsule 400 Mg PO TID 11/16/16 Reported Metformin Hcl 500 Mg Tablet 500 Mg PO BIDWMEALS 11/16/16 Reported Docusate Sodium 100 Mg Capsule 1 Cap PO BID 11/16/16 Reported Clonazepam 0.5 Mg Tablet 1 Tab PO BID 11/16/16 Reported Carvedilol 6.25 Mg Tablet 1 Tab PO BID 11/16/16 Reported Aspirin 325 Mg Tablet 1 Tab PO BID 11/16/16 Reported Albuterol Sulfate Neb Soln (Albuterol Sulfate) 0.63 Mg/3 Ml Vial.neb 1 Vial NEB QID 11/16/16 Reported Potassium Chloride 20 Meq Tablet.er 20 Meq PO DAILY 11/16/16 Reported Loratadine 10 Mg Tablet 1 Tab PO DAILY 11/16/16 Reported Furosemide 40 Mg Tablet 1 Tab PO DAILY 11/16/16 Reported Duloxetine Hcl 30 Mg Capsule.dr 30 Mg PO DAILY 11/16/16 Reported Colestipol Hcl 1 Gm Tablet 1 Gm PO 11/16/16 Reported Impression . 1. Acute respiratory failure secondary to acute exacerbation of chronic obstructive pulmonary disease. 2. Recent history of pneumonia. 3. No fever. 4. Status post bilateral knee replacement. 5. Leukocytosis. 6. Tobacco dependence. Plan . 1. I agree with current medical management, would deescalate antibiotics due to the fact that the chest x-ray is clear. 2. Obtain bilateral venous Dopplers of the lower extremities. 3. A 6-minute walk prior to discharge. 4. The patient was counseled on the importance of discontinuing her tobacco use. 5. Continue DVT prophylaxis. NAEEM TROY MD Nov 17, 2016 10:09
[2016-11-17 10:53] VITALS: BP 141/49
[2016-11-17] MEDS: ASA/APAP/CAFFEINE 250/250/65MG TABLET. PO PRN ×3 (11:15→22:41)
[2016-11-17] MEDS ORDERED: AZITHROMYCIN 250 MG TABLET. PO ONE (13:15)
--- NOTE | 2016-11-17 13:22 | PDOC ---
PROGRESS NOTES Chief Complaint Chief Complaint Acute hypoxic respir failure ASSESSMENT AND PLAN: 1. COPD exacerbation: cont steroids (switch to PO in AM), nebs O2. appreciate Dr Olson's input 2. Recent PNA: CXR clear. stop IV Abx 3. DM2: well controlled with metformin; ISS 4. Fibromyalgia. 5. Anxiety: cont home mult home meds 6. Debility: OT/PT eval History of Present Illness History of Present Illness feeling better. reluctant to get up in chair, but eager to go home... Vitals Vitals Vital Signs Date Time Temp Pulse Resp B/P (MAP) Pulse Ox O2 Delivery O2 Flow Rate FiO2 11/17/16 10:53 97.9 91 18 141/49 (79) 94 Nasal Cannula 2.0 97.9 Physical Exam General: Alert, Oriented X3, Cooperative Heart: Regular rate Lungs: Clear Abdomen: Normal bowel sounds, No tenderness Extremities: No clubbing, No edema Skin: No rashes Labs LABS Laboratory Tests Test 11/16/16 16:54 11/16/16 21:30 11/17/16 04:10 11/17/16 08:34 Glucose (Fingerstick) 123 mg/dL (70-99) 128 mg/dL (70-99) 121 mg/dL (70-99) White Blood Count 10.4 x10^3/uL (4.0-11.0) Red Blood Count 3.66 x10^6/uL (3.50-5.40) Hemoglobin 10.4 g/dL (12.0-15.5) Hematocrit 31.9 % (36.0-47.0) Mean Corpuscular Volume 87 fL (79-100) Mean Corpuscular Hemoglobin 28 pg (25-35) Mean Corpuscular Hemoglobin Concent 33 g/dL (31-37) Red Cell Distribution Width 16.8 % (11.5-14.5) Platelet Count 269 x10^3/uL (140-400) Neutrophils (%) (Auto) 90 % (31-73) Lymphocytes (%) (Auto) 9 % (24-48) Monocytes (%) (Auto) 1 % (0-9) Eosinophils (%) (Auto) 0 % (0-3) Basophils (%) (Auto) 0 % (0-3) Neutrophils # (Auto) 9.3 x10^3uL (1.8-7.7) Lymphocytes # (Auto) 0.9 x10^3/uL (1.0-4.8) Monocytes # (Auto) 0.1 x10^3/uL (0.0-1.1) Eosinophils # (Auto) 0.0 x10^3/uL (0.0-0.7) Basophils # (Auto) 0.0 x10^3/uL (0.0-0.2) Segmented Neutrophils % 88 % (35-66) Band Neutrophils % 5 % (0-9) Lymphocytes % 6 % (24-48) Monocytes % 1 % (0-10) Platelet Estimate Adequate (ADEQUATE) Anisocytosis Slight Sodium Level 143 mmol/L (136-145) Potassium Level 4.0 mmol/L (3.5-5.1) Chloride Level 109 mmol/L (98-107) Carbon Dioxide Level 23 mmol/L (21-32) Anion Gap 11 (6-14) Blood Urea Nitrogen 12 mg/dL (7-20) Creatinine 0.9 mg/dL (0.6-1.0) Estimated GFR (Cockcroft-Gault) 61.7 Glucose Level 126 mg/dL (70-99) Calcium Level 8.7 mg/dL (8.5-10.1) Test 11/17/16 11:53 Glucose (Fingerstick) 104 mg/dL (70-99) LISSET VILLARREAL MD Nov 17, 2016 13:22
[2016-11-17 15:00] VITALS: BP 119/54
[2016-11-17] MEDS: ALBUTEROL SULFATE 2.5 MG/3 ML NEBU. NEB PRN ×2 (16:32→19:57)
[2016-11-17 19:00] VITALS: BP 126/59
[2016-11-17] MEDS: MIRTAZAPINE 15 MG TABLET PO SCH (21:09)
[2016-11-17] MEDS: AMITRIPTYLINE HCL 10 MG TABLET. PO SCH (21:09)
[2016-11-17] MEDS: ATORVASTATIN CALCIUM 20 MG TABLET PO SCH (21:09)
[2016-11-17] MEDS: HYDROcodone/APAP 5/325MG 1 TAB TABLET PO PRN (21:32)
[2016-11-17 22:52] VITALS: BP 156/88
[2016-11-18 04:24] LABS: BASO % 0 % (0-3); EOS % 0 % (0-3); HEMATOCRIT 29.5 % (36.0-47.0); HEMOGLOBIN 9.8 g/dL (12.0-15.5); LYMPH # 1.8 x10^3/uL (1.0-4.8); LYMPH % 14 % (24-48); MEAN CORPUSCULAR HEMOGLOBIN 28 pg (25-35); MEAN CORPUSCULAR HGB CONC 33 g/dL (31-37); MEAN CORPUSCULAR VOLUME 85 fL (79-100); MONO % 6 % (0-9); NEUT % 79 % (31-73); PLATELET COUNT 296 x10^3/uL (140-400); RED BLOOD COUNT 3.45 x10^6/uL (3.50-5.40); RED CELL DISTRIBUTION WIDTH 16.4 % (11.5-14.5); WHITE BLOOD COUNT 12.7 x10^3/uL (4.0-11.0)
[2016-11-18 04:55] LABS: CALCIUM 8.5 mg/dL (8.5-10.1); GFR 54.7; POTASSIUM 3.6 mmol/L (3.5-5.1)
[2016-11-18 07:00] VITALS: BP 128/77
[2016-11-18] MEDS: metFORMIN 500 MG TABLET PO SCH ×2 (08:15→17:17)
[2016-11-18] MEDS: ASPIRIN 325 MG TABLET PO SCH (08:15)
[2016-11-18] MEDS: GABAPENTIN 400 MG CAPSULE. PO SCH ×2 (08:15→14:51)
[2016-11-18] MEDS: COLESTIPOL HCL 1 GM TABLET PO SCH (08:15)
[2016-11-18] MEDS: DULoxetine HCL 30 MG CAPSULE.DR PO SCH (08:15)
[2016-11-18] MEDS: CETIRIZINE HCL 10 MG TABLET. PO SCH (08:16)
[2016-11-18] MEDS: clonazePAM 0.5 MG TABLET PO SCH (08:16)
[2016-11-18] MEDS: POTASSIUM CHLORIDE 20 MEQ TABLET.ER. PO SCH (08:16)
[2016-11-18] MEDS: CARVEDILOL 6.25 MG TABLET. PO SCH ×2 (08:17→17:00)
[2016-11-18] MEDS: ENOXAPARIN 40 MG/0.4 ML SYRINGE. SQ SCH (08:17)
[2016-11-18] MEDS: INSULIN ASPART 300 UNITS/3 ML INSULN.PEN SQ SCH ×3 (08:25→17:00)
[2016-11-18] MEDS: DOCUSATE SODIUM 100 MG CAPSULE. PO SCH (08:25)
[2016-11-18] MEDS ORDERED: predniSONE 20 MG TABLET PO SCH (09:00)
[2016-11-18] MEDS: ALBUTEROL SULFATE 2.5 MG/3 ML NEBU. NEB PRN ×3 (09:49→16:16)
--- NOTE | 2016-11-18 09:59 | PDOC ---
PULMONARY PROGRESS NOTES Subjective pt feels better less soa Vitals Vital Signs Date Time Temp Pulse Resp B/P (MAP) Pulse Ox O2 Delivery O2 Flow Rate FiO2 11/18/16 09:51 98 Nasal Cannula 2.0 11/18/16 08:17 87 128/77 11/18/16 02:13 18 11/17/16 22:52 98.6 98.6 ROS: No Nausea, No Chest Pain, No Abdominal Pain, No Increase Cough Lungs: Clear Cardiovascular: S1, S2 Abdomen: Soft Neuro Exam: Alert Extremities: No Edema Skin: Warm Labs Laboratory Tests Test 11/16/16 12:30 11/16/16 16:54 11/16/16 20:05 11/16/16 21:30 Urine Legionella Antigen Negative (Negative) Glucose (Fingerstick) 123 mg/dL (70-99) 128 mg/dL (70-99) Nasal Screen MRSA (PCR) Negative (Negative) Test 11/17/16 04:10 11/17/16 08:34 11/17/16 11:53 11/17/16 16:42 White Blood Count 10.4 x10^3/uL (4.0-11.0) Red Blood Count 3.66 x10^6/uL (3.50-5.40) Hemoglobin 10.4 g/dL (12.0-15.5) Hematocrit 31.9 % (36.0-47.0) Mean Corpuscular Volume 87 fL (79-100) Mean Corpuscular Hemoglobin 28 pg (25-35) Mean Corpuscular Hemoglobin Concent 33 g/dL (31-37) Red Cell Distribution Width 16.8 % (11.5-14.5) Platelet Count 269 x10^3/uL (140-400) Neutrophils (%) (Auto) 90 % (31-73) Lymphocytes (%) (Auto) 9 % (24-48) Monocytes (%) (Auto) 1 % (0-9) Eosinophils (%) (Auto) 0 % (0-3) Basophils (%) (Auto) 0 % (0-3) Neutrophils # (Auto) 9.3 x10^3uL (1.8-7.7) Lymphocytes # (Auto) 0.9 x10^3/uL (1.0-4.8) Monocytes # (Auto) 0.1 x10^3/uL (0.0-1.1) Eosinophils # (Auto) 0.0 x10^3/uL (0.0-0.7) Basophils # (Auto) 0.0 x10^3/uL (0.0-0.2) Segmented Neutrophils % 88 % (35-66) Band Neutrophils % 5 % (0-9) Lymphocytes % 6 % (24-48) Monocytes % 1 % (0-10) Platelet Estimate Adequate (ADEQUATE) Anisocytosis Slight Sodium Level 143 mmol/L (136-145) Potassium Level 4.0 mmol/L (3.5-5.1) Chloride Level 109 mmol/L (98-107) Carbon Dioxide Level 23 mmol/L (21-32) Anion Gap 11 (6-14) Blood Urea Nitrogen 12 mg/dL (7-20) Creatinine 0.9 mg/dL (0.6-1.0) Estimated GFR (Cockcroft-Gault) 61.7 Glucose Level 126 mg/dL (70-99) Calcium Level 8.7 mg/dL (8.5-10.1) Glucose (Fingerstick) 121 mg/dL (70-99) 104 mg/dL (70-99) 112 mg/dL (70-99) Test 11/17/16 20:42 11/18/16 03:53 11/18/16 07:25 Glucose (Fingerstick) 122 mg/dL (70-99) 122 mg/dL (70-99) White Blood Count 12.7 x10^3/uL (4.0-11.0) Red Blood Count 3.45 x10^6/uL (3.50-5.40) Hemoglobin 9.8 g/dL (12.0-15.5) Hematocrit 29.5 % (36.0-47.0) Mean Corpuscular Volume 85 fL (79-100) Mean Corpuscular Hemoglobin 28 pg (25-35) Mean Corpuscular Hemoglobin Concent 33 g/dL (31-37) Red Cell Distribution Width 16.4 % (11.5-14.5) Platelet Count 296 x10^3/uL (140-400) Neutrophils (%) (Auto) 79 % (31-73) Lymphocytes (%) (Auto) 14 % (24-48) Monocytes (%) (Auto) 6 % (0-9) Eosinophils (%) (Auto) 0 % (0-3) Basophils (%) (Auto) 0 % (0-3) Neutrophils # (Auto) 10.0 x10^3uL (1.8-7.7) Lymphocytes # (Auto) 1.8 x10^3/uL (1.0-4.8) Monocytes # (Auto) 0.8 x10^3/uL (0.0-1.1) Eosinophils # (Auto) 0.0 x10^3/uL (0.0-0.7) Basophils # (Auto) 0.0 x10^3/uL (0.0-0.2) Sodium Level 144 mmol/L (136-145) Potassium Level 3.6 mmol/L (3.5-5.1) Chloride Level 110 mmol/L (98-107) Carbon Dioxide Level 22 mmol/L (21-32) Anion Gap 12 (6-14) Blood Urea Nitrogen 25 mg/dL (7-20) Creatinine 1.0 mg/dL (0.6-1.0) Estimated GFR (Cockcroft-Gault) 54.7 Glucose Level 137 mg/dL (70-99) Calcium Level 8.5 mg/dL (8.5-10.1) Laboratory Tests Test 11/17/16 11:53 11/17/16 16:42 11/17/16 20:42 11/18/16 03:53 Glucose (Fingerstick) 104 mg/dL (70-99) 112 mg/dL (70-99) 122 mg/dL (70-99) White Blood Count 12.7 x10^3/uL (4.0-11.0) Red Blood Count 3.45 x10^6/uL (3.50-5.40) Hemoglobin 9.8 g/dL (12.0-15.5) Hematocrit 29.5 % (36.0-47.0) Mean Corpuscular Volume 85 fL (79-100) Mean Corpuscular Hemoglobin 28 pg (25-35) Mean Corpuscular Hemoglobin Concent 33 g/dL (31-37) Red Cell Distribution Width 16.4 % (11.5-14.5) Platelet Count 296 x10^3/uL (140-400) Neutrophils (%) (Auto) 79 % (31-73) Lymphocytes (%) (Auto) 14 % (24-48) Monocytes (%) (Auto) 6 % (0-9) Eosinophils (%) (Auto) 0 % (0-3) Basophils (%) (Auto) 0 % (0-3) Neutrophils # (Auto) 10.0 x10^3uL (1.8-7.7) Lymphocytes # (Auto) 1.8 x10^3/uL (1.0-4.8) Monocytes # (Auto) 0.8 x10^3/uL (0.0-1.1) Eosinophils # (Auto) 0.0 x10^3/uL (0.0-0.7) Basophils # (Auto) 0.0 x10^3/uL (0.0-0.2) Sodium Level 144 mmol/L (136-145) Potassium Level 3.6 mmol/L (3.5-5.1) Chloride Level 110 mmol/L (98-107) Carbon Dioxide Level 22 mmol/L (21-32) Anion Gap 12 (6-14) Blood Urea Nitrogen 25 mg/dL (7-20) Creatinine 1.0 mg/dL (0.6-1.0) Estimated GFR (Cockcroft-Gault) 54.7 Glucose Level 137 mg/dL (70-99) Calcium Level 8.5 mg/dL (8.5-10.1) Test 11/18/16 07:25 Glucose (Fingerstick) 122 mg/dL (70-99) Medications Active Scripts Medications Dose Route/Sig Max Daily Dose Days Date Category Tramadol Hcl 50 Mg Tablet 1 Tab PO PRN Q6HRS 11/16/16 Reported Oxycodone Hcl 5 Mg Capsule 5 Mg PO PRN Q4HRS PRN 11/16/16 Reported Robaxin (Methocarbamol) 500 Mg Tablet 1 Tab PO PRN TID PRN 11/16/16 Reported Mirtazapine 30 Mg Tablet 1 Tab PO QHS 11/16/16 Reported Melatin (Melatonin) 3 Mg Tablet 12 Mg PO QHS 11/16/16 Reported Atorvastatin Calcium 20 Mg Tablet 20 Mg PO HS 11/16/16 Reported Amitriptyline Hcl 10 Mg Tablet 1 Tab PO QHS 11/16/16 Reported Voltaren (Diclofenac Sodium) 100 Gm Gel..gram. 1 Gm TP PRN QID PRN 11/16/16 Reported Gabapentin 400 Mg Capsule 400 Mg PO TID 11/16/16 Reported Metformin Hcl 500 Mg Tablet 500 Mg PO BIDWMEALS 11/16/16 Reported Docusate Sodium 100 Mg Capsule 1 Cap PO BID 11/16/16 Reported Clonazepam 0.5 Mg Tablet 1 Tab PO BID 11/16/16 Reported Carvedilol 6.25 Mg Tablet 1 Tab PO BID 11/16/16 Reported Aspirin 325 Mg Tablet 1 Tab PO BID 11/16/16 Reported Albuterol Sulfate Neb Soln (Albuterol Sulfate) 0.63 Mg/3 Ml Vial.neb 1 Vial NEB QID 11/16/16 Reported Potassium Chloride 20 Meq Tablet.er 20 Meq PO DAILY 11/16/16 Reported Loratadine 10 Mg Tablet 1 Tab PO DAILY 11/16/16 Reported Furosemide 40 Mg Tablet 1 Tab PO DAILY 11/16/16 Reported Duloxetine Hcl 30 Mg Capsule.dr 30 Mg PO DAILY 11/16/16 Reported Colestipol Hcl 1 Gm Tablet 1 Gm PO 11/16/16 Reported Impression . 1. Acute respiratory failure secondary to acute exacerbation of chronic obstructive pulmonary disease. 2. Recent history of pneumonia. 3. No fever. 4. Status post bilateral knee replacement. 5. Leukocytosis. 6. Tobacco dependence. Plan . d/c home no need for follow up does not meet 02 needs d/c smoking NAEEM TROY MD Nov 18, 2016 09:59
[2016-11-18 11:00] VITALS: BP 132/75
[2016-11-18 15:00] VITALS: BP 152/85
[2016-11-18] MEDS ORDERED: PRED-220 PO (16:07)
[2016-11-18 17:00] VITALS: BP 152/85
--- NOTE | 2016-11-20 00:43 | DS ---
DATE OF DISCHARGE: 11/18/2016 CHIEF COMPLAINT: Acute hypoxic respiratory failure. HOSPITAL COURSE: The patient is a 71-year-old woman with a recent diagnosis of pneumonia, who presented with acute hypoxic respiratory failure with a clear chest x-ray, suspicion for pneumonia was . She was treated for COPD exacerbation including steroids, nebs and O2. Antibiotics were stopped. Her other medical problems actually remained completely stable including her diabetes mellitus. Her respiratory status cleared up significantly, and she was able to breathe without supplemental oxygen on day of discharge. A 6-minute walk was obtained. PHYSICAL EXAMINATION: VITAL SIGNS: Blood pressure of 141/49, pulse at 91, respiratory rate at 18. She is afebrile. GENERAL: This is an obese 71-year-old woman, alert and oriented, no acute distress. LUNGS: Fairly clear. HEART: Regular rate and rhythm. ABDOMEN: Obese. EXTREMITIES: Show 1+ edema bilaterally. DISCHARGE DATE: 11/18/2016. DISCHARGE DIAGNOSIS: Chronic obstructive pulmonary disease exacerbation. DISCHARGE DISPOSITION: To assisted living with home health care. DISCHARGE CONDITION: Improved. DISCHARGE MEDICATIONS: Please refer to transfer sheet. DISCHARGE INSTRUCTIONS: The patient will follow up with her primary care physician in 1 week. LISSET VILLARREAL MD DR: UR/nts JOB#: [id number] / [id number] BA Bailon MD MTDD
== END 2016-11-18 19:00 | disposition home or self-care (01) | DRG 871 ==
LOC: ER 05:24 → 5 NORTH 06:49
PROVIDERS: ADMIT Internal Medicine; ATTEND Internal Medicine
DX: A41.9 Sepsis, unspecified organism (principal); J96.01 Acute respiratory failure with hypoxia; J44.1 Chronic obstructive pulmonary disease with (acute) exacerbation; Z68.41 Body mass index [BMI] 40.0-44.9, adult; F32.9 Major depressive disorder, single episode, unspecified; M19.90 Unspecified osteoarthritis, unspecified site; E10.42 Type 1 diabetes mellitus with diabetic polyneuropathy; E78.00 Pure hypercholesterolemia, unspecified; E66.9 Obesity, unspecified; E78.5 Hyperlipidemia, unspecified; F17.200 Nicotine dependence, unspecified, uncomplicated; Z96.653 Presence of artificial knee joint, bilateral; F41.9 Anxiety disorder, unspecified; I10 Essential (primary) hypertension; M79.7 Fibromyalgia; W19.XXXA Unspecified fall, initial encounter; Z79.4 Long term (current) use of insulin; Z82.49 Family history of ischemic heart disease and other diseases of the circulatory system; Z87.01 Personal history of pneumonia (recurrent); Z98.891 History of uterine scar from previous surgery; J40 Bronchitis, not specified as acute or chronic
CPT/HCPCS: 36415; 70450; 71020; 73521; 80048; 80053; 81001; 82962; 83605; 84484; 85007; 85027; 87040; 87086; 87449; 87641; 93005; 93306; 93970; 94250; 94620; 94640; 94760; 96365; 96375; J0360; J1650; J1815; J2543; J2920; J3370; J7030; J7040; J7512; J7620; Q0144; 97530; 97535; 99285-25